=== PATIENT | female | born 1980 | race Caucasian/White ===

== ENCOUNTER 2019-03-14 19:35 | Inpatient (IN) ==
[2019-03-14] MEDS ORDERED: OXYTOCIN 30 UNITS/500 ML BAG IV PRN (20:11)
[2019-03-14] MEDS: LACTATED RINGER'S 1,000 ML IV PRN ×2 (20:27→22:16)
[2019-03-14 20:36] LABS: Hematocrit (blood only) 37.3 % (37-47); Hemoglobin 12.8 g/dL (12.0-16.0); Mean Corpuscular Volume 98.9 fL (80-100); Mean Platelet Volume 11.7 fL (7.4-10.4); Platelet Count 163 K/uL (130-400); RDW Coefficient of Variation 14.1 % (11.5-14.5); RDW Standard Deviation 50.3 fL (36.4-46.3); Red Blood Count 3.77 M/uL (4.2-5.4); White Blood Count 15.85 K/uL (4.8-10.8)
[2019-03-14 20:55] LABS: Mean Corpuscular Hgb Conc 34.3 g/dL (32-36)
--- NOTE | 2019-03-14 21:03 | Obstetrical Progress Note ---
Date of Service March 14, 2019 Subjective Admit Note 38 F P0000 at 40.2 weeks admitted with SROM clear fluid 6:30 PM. GBS is negative. FHT Cat 1. Cervix 5/90/-1/vertex. Patient walked and now may want an epidural. Results & Data Vital Signs (Past 12 Hours) Vital Signs Temp Pulse Resp BP 03/14/19 20:30 20 03/14/19 20:00 20 03/14/19 19:50 37.1 C 20 03/14/19 19:43 80 141/78 H
[2019-03-14] MEDS ORDERED: NALBUPHINE HCL INJ 10 MG/ML AMP IV PRN (21:51)
[2019-03-14] MEDS ORDERED: DiphenhydrAMINE HCL 50 MG/ML VIAL IV PRN (21:51)
[2019-03-14] MEDS ORDERED: fentaNYL 2MCG/ML ROPIV 1.25MG/ML 100 ML BAG EPI PRN (21:51)
[2019-03-14] MEDS ORDERED: NALOXONE HCL 0.4 MG/1 ML VIAL/CARP IV PRN (21:51)
[2019-03-14] MEDS ORDERED: ePHEDrine sulfate 50 MG/ML AMP IV PRN (21:51)
[2019-03-14] MEDS ORDERED: NALOXONE HCL 1 MG in SODIUM CHLORIDE 0.9% 1000ML 1,000 ML IV PRN (21:51)
[2019-03-14] MEDS ORDERED: ONDANSETRON INJ 2 MG/ML 2 ML VIAL IV PRN (21:51)
--- NOTE | 2019-03-14 21:51 | Anesthesiology Consultation ---
Date of Service March 14, 2019 Assessment & Plan (1) Encounter for pre-operative examination: Chart Review Chart Review: Acceptable Risk for Labor Epidural Consults Requested none ASA ASA2 Proposed Anesthesia Anesthesia Type: Labor Epidural Risk / Benefits Reviewed With: PT / POA / Parent / Guardian, Accepts Plan and Informed Consent Obtained History Height/Weight Height: 5 ft 4 in Weight: 75.75 kg Allergies Allergy/AdvReac Type Severity Reaction Status Date / Time No Known Allergies Allergy Verified 01/23/19 19:31 Medications Home Medications Medication Instructions Recorded Confirmed Last Taken PNV cmb#95-ferrous fumarate-FA 1 tab PO DAILY 01/23/19 03/14/19 03/14/19 [] acyclovir 400 mg PO TID 03/14/19 03/14/19 03/14/19 Active Medications Generic Name Dose Route Start Last Admin Trade Name Freq PRN Reason Stop Dose Admin Lactated Ringer's 1,000 mls @ 125 mls/hr 03/14/19 20:11 03/14/19 20:27 Lr IV 03/16/19 20:10 125 mls/hr .Q8H PRN Administration L&D Protocol Protocol Past Medical History Medical History SELENE III (cervical intraepithelial neoplasia III) Scoliosis s/p lumbar fusion (T3-L2 per prior imaging); hardware subsequently removed 2/2 discomfort Exercise / Class Metabolic Activity II 4-5 Yardwork/Stairs/Walk up hill Past Surgical History Surgical History History of colposcopy History of lumbar fusion lumbar fusion (T3-L2 per prior imaging) for scoliosis; hardware subsequently removed 2/2 discomfort [place] teeth removed 2009 Past Anesthesia History No Hx of Anesthesia Complications and No Family Hx of Anesthesia Complications History of PONV No Hx of PONV and No Hx of Motion Sickness Social History Smoking Status: Former smoker Hx Alcohol Use: No Hx Substance Use: No substance use type: does not use Physical Exam Vital Signs Last Vital Signs Temp 98.8 F 03/14/19 19:50 Pulse 85 03/14/19 21:46 Resp 22 03/14/19 20:59 BP 138/81 03/14/19 21:36 Pulse Ox 99 03/14/19 21:46 ENMT Mouth: no dentition abnormality Thyromental Distance: > or= 3.5 Finger Breadths Mallampati Class: II Neck normal visual inspection Respiratory normal respiratory effort Auscultation: lungs clear to auscultation bilaterally Cardiovascular Rate/Rhythm: regular rate and regular rhythm Testing Laboratory Results 03/14/19 20:22
[2019-03-14] MEDS ORDERED: fentaNYL citrate 100 MCG/2 ML VIAL ONE (22:24)
[2019-03-14] MEDS ORDERED: ePHEDrine sulfate 50 MG/ML AMP ONE (22:25)
[2019-03-14] MEDS ORDERED: BUPIVACAINE 0.25% 30 ML VIAL ONE (22:25)
[2019-03-14] MEDS ORDERED: fentaNYL 2MCG/ML ROPIV 1.25MG/ML 100 ML BAG EPI ONE (22:25)
[2019-03-15] MEDS ORDERED: OXYTOCIN 30 UNITS/500 ML BAG IV PRN ×2 (02:32→08:30)
--- NOTE | 2019-03-15 02:36 | Obstetrical Progress Note ---
Date of Service March 15, 2019 Physical Exam Genitourinary: OB Exam Abdomen: + estimated weight (7-8 lb) Manual OB Exam: + cervical dilation 10 cm, + cervical effacement 100% and + station 0 OB Exam Monitor Tracing: + external FHT monitor used, + external uterine monitor used and + category I will start to Oxytocin to augment contractions Results & Data Vital Signs (Past 12 Hours) Vital Signs Temp Pulse Resp BP Pulse Ox 03/15/19 02:31 113 H 96 03/15/19 02:30 100 H 94 03/15/19 02:26 121 H 94 03/15/19 02:21 106 H 97 03/15/19 02:20 110 H 123/63 03/15/19 02:18 37.2 C 18 03/15/19 02:16 102 H 97 03/15/19 02:12 102 H 94 03/15/19 02:11 102 H 95 03/15/19 02:06 104 H 95 03/15/19 02:05 93 H 121/62 94 03/15/19 02:01 104 H 97 03/15/19 01:56 102 H 94 03/15/19 01:54 96 H 94 03/15/19 01:51 102 H 95 03/15/19 01:50 93 H 116/61 03/15/19 01:47 100 H 94 03/15/19 01:46 98 H 95 03/15/19 01:41 92 H 96 03/15/19 01:37 108 H 94 03/15/19 01:36 103 H 95 03/15/19 01:34 91 H 115/64 03/15/19 01:31 99 H 98 03/15/19 01:30 107 H 94 03/15/19 01:26 93 H 94 03/15/19 01:24 93 H 92 03/15/19 01:21 101 H 96 03/15/19 01:19 98 H 118/72 03/15/19 01:16 104 H 96 03/15/19 01:14 101 H 94 03/15/19 01:11 100 H 97 03/15/19 01:06 100 H 96 03/15/19 01:04 99 H 123/73 03/15/19 01:01 101 H 96 03/15/19 00:56 96 H 95 01/06/20 00:51 106 H 95 03/15/19 00:50 100 H 94 03/15/19 00:49 97 H 123/67 03/15/19 00:46 95 H 95 03/15/19 00:41 37.6 C H 94 H 20 96 03/15/19 00:36 95 H 97 03/15/19 00:35 96 H 93 03/15/19 00:34 92 H 146/77 H 03/15/19 00:31 93 H 97 03/15/19 00:28 94 H 94 03/15/19 00:26 95 H 95 03/15/19 00:21 92 H 116/57 L 96 03/15/19 00:16 90 96 03/15/19 00:11 99 H 96 03/15/19 00:06 91 H 97 03/15/19 00:04 94 H 18 110/61 03/15/19 00:01 94 H 97 03/14/19 23:56 94 H 96 03/14/19 23:51 96 H 95 03/14/19 23:49 95 H 114/62 03/14/19 23:46 100 H 96 03/14/19 23:41 97 H 96 03/14/19 23:36 100 H 95 03/14/19 23:34 97 H 113/61 03/14/19 23:31 94 H 97 03/14/19 23:26 94 H 96 03/14/19 23:21 106 H 96 03/14/19 23:19 90 110/58 L 03/14/19 23:16 96 H 96 03/14/19 23:11 98 H 96 03/14/19 23:06 95 H 97 03/14/19 23:05 92 H 118/62 03/14/19 23:01 97 H 96 03/14/19 23:00 22 03/14/19 22:56 37.1 C 90 18 96 03/14/19 22:51 91 H 97 03/14/19 22:49 88 122/58 L 03/14/19 22:46 100 H 98 03/14/19 22:41 94 H 97 03/14/19 22:36 91 H 97 03/14/19 22:34 96 H 131/83 03/14/19 22:31 100 H 97 03/14/19 22:30 37.3 C 20 03/14/19 22:26 104 H 98 03/14/19 22:21 104 H 97 03/14/19 22:18 99 H 136/79 03/14/19 22:16 104 H 133/73 97 03/14/19 22:14 100 H 127/75 03/14/19 22:12 79 130/77 03/14/19 22:11 102 H 97 03/14/19 22:10 96 H 130/76 03/14/19 22:08 95 H 126/79 03/14/19 22:06 97 H 96 03/14/19 22:01 104 H 96 03/14/19 21:56 99 H 97 03/14/19 21:51 99 H 98 03/14/19 21:50 97 H 154/76 H 03/14/19 21:46 85 99 03/14/19 21:41 81 98 03/14/19 21:36 89 138/81 97 03/14/19 21:27 22 03/14/19 20:59 22 03/14/19 20:30 20 03/14/19 20:00 20 03/14/19 19:50 37.1 C 20 03/14/19 19:43 80 141/78 H
[2019-03-15] MEDS ORDERED: fentaNYL citrate 100 MCG/2 ML VIAL ONE (03:44)
[2019-03-15] MEDS ORDERED: BUPIVACAINE 0.25% 30 ML VIAL ONE (03:44)
--- NOTE | 2019-03-15 03:55 | Anesthesiology Progress Note ---
Date of Service March 15, 2019 Subjective The patient stated having increasing labor pains. The patients cervix is 10 cm dilated but she is unable to push due to the pain. The epidural was bolused with fentanyl 50 mcg and 3mL of 0.25% bupivacaine. The patient stated having improved labor pains. VSS throughout. heart tones also stable. Physical Exam Vital Signs: Last Vital Signs Temp 99.0 F 03/15/19 02:18 Pulse 93 H 03/15/19 03:50 Resp 18 03/15/19 02:18 BP 129/65 03/15/19 03:50 Pulse Ox 96 03/15/19 03:46 Results & Data Medications Administered Lactated Ringer's (Lr) 1,000 mls @ 125 mls/hr IV .Q8H PRN; Protocol PRN Reason: L&D Protocol Stop: 03/16/19 20:10 Last Admin: 03/14/19 22:16 Dose: 125 mls/hr Documented by: [id number] Infusion: 03/14/19 22:16 Dose: 999 mls/hr Documented by: [id number] Infusion: 03/14/19 21:30 Dose: 999 mls/hr Documented by: [id number] Admin: 03/14/19 20:27 Dose: 125 mls/hr Documented by: [id number] Ropivacaine (Epidural (L&D)) 100 ml EPI PRN PRN; Protocol PRN Reason: Pain R/T Labor Stop: 03/15/19 21:50 Last Admin: 03/14/19 22:08 Dose: 100 ml Documented by: [id number] Cosigned by: [id number]
[2019-03-15] MEDS ORDERED: fentaNYL citrate 100 MCG/2 ML VIAL IV STA (04:10)
[2019-03-15] MEDS: LACTATED RINGER'S 1,000 ML IV PRN (06:16)
[2019-03-15] MEDS ORDERED: miSOPROStoL 200 MCG TAB ONE (08:06)
[2019-03-15] MEDS ORDERED: METHYLERGONOVINE MALEATE 0.2 MG/ML AMP IM ONE (08:30)
[2019-03-15] MEDS ORDERED: OXYCODONE/ACETAMINOPHEN 5mg/325mg TAB PO PRN (08:30)
[2019-03-15] MEDS ORDERED: HYDROCORTISONE ACETATE 25 MG SUPP PR PRN (08:30)
[2019-03-15] MEDS ORDERED: BENZOCAINE 20% AER SPR 82.5 GM CAN EXT PRN (08:30)
[2019-03-15] MEDS ORDERED: ACETAMINOPHEN W/CODEINE #3 1 TAB PO PRN (08:30)
[2019-03-15] MEDS ORDERED: SUPERCREAM 0.870% 15 GM JAR EXT PRN (08:30)
[2019-03-15] MEDS ORDERED: miSOPROStoL 200 MCG TAB PR ONE (08:30)
[2019-03-15] MEDS ORDERED: DIPHTHERIA/TETANUS/PERTUSSIS 0.5 ML SYR/VIAL IM ONE (08:30)
[2019-03-15] MEDS ORDERED: bisacodyL 10 MG SUPP PR PRN (08:30)
[2019-03-15] MEDS ORDERED: ACETAMINOPHEN 325 MG TAB PO PRN (08:30)
--- NOTE | 2019-03-15 08:42 | Delivery Summary ---
DATE OF OPERATION: 03/15/2019 The patient delivered a live infant female in occiput anterior presentation as well as a left hand compound presentation. Infant was delivered. There was no nuchal cord. was delivered and placed on mother's abdomen. Cord was clamped and cut after 1 minute. Cord blood was obtained. Placenta was spontaneously delivered. Inspection of the perineum showed a second-degree midline laceration. This was repaired in layers with Vicryl stitch. Rectal exam post repair showed good sphincter tone. There are no sutures palpated in the rectum. Estimated blood loss is 400 mL. There is good hemostasis. All instruments were removed from the vagina including sponges, retractors and needles and accounted for x2. Baby and mother are stable in recovery. I attest to the content of the Intraoperative Record and any orders documented therein. Any exception s are noted below.
--- NOTE | 2019-03-15 09:33 | Anesthesia Procedure Note ---
Date of Service March 15, 2019 Anesthesia Post Epidural Note Vital Signs Vital Signs: Temp Pulse Resp BP Pulse Ox 37.3 C 88 20 129/62 95 03/15/19 07:12 03/15/19 09:30 03/15/19 09:15 03/15/19 09:30 03/15/19 07:56 Pain Intensity Left Hip: Pain Intensity: 0 Notes Mental Status: alert / awake / arousable Nausea / Vomiting: adequately controlled Pain: adequately controlled Airway Patency, RR, SpO2: stable & adequate BP & HR: stable & adequate Hydration State: stable & adequate Neuraxial Anesthesia: was administered and sensory block is resolving Anesthetic Complications: no major complications apparent and Pt Satisfied with anesthetic care Epidural: Removed without complications and With tip intact
[2019-03-15] MEDS: DOCUSATE SODIUM 100 MG CAP PO SCH (21:06)
[2019-03-16 06:45] LABS: Hematocrit (blood only) 34.8 % (37-47); Hemoglobin 11.6 g/dL (12.0-16.0); Mean Corpuscular Hemoglobin 33.1 pg (25-34); Mean Corpuscular Hgb Conc 33.3 g/dL (32-36); Mean Corpuscular Volume 99.4 fL (80-100); Platelet Count 162 K/uL (130-400); RDW Coefficient of Variation 14.3 % (11.5-14.5); RDW Standard Deviation 51.5 fL (36.4-46.3); White Blood Count 21.12 K/uL (4.8-10.8)
[2019-03-16] MEDS: FERROUS SULFATE 325 MG TAB PO SCH (08:44)
[2019-03-16] MEDS: PRENATAL VITAMIN 1 TAB PO SCH (08:44)
[2019-03-16] MEDS: DOCUSATE SODIUM 100 MG CAP PO SCH ×2 (08:44→19:34)
--- NOTE | 2019-03-16 10:11 | Obstetrical Progress Note ---
Date of Service March 16, 2019 Subjective Patient is seen and examined. She feels well, no complaints. Ambulating without dizziness Voiding without difficulty Tolerating regular diet with out N&V Bleeding is minimal No fever/ chills/ CP/ SOB/ N&V/ Leg pain Breast feeding without problems Vital Signs Temp Pulse Pulse Pulse Resp BP BP 03/16/19 03:50 36.5 C 69 18 03/15/19 23:10 36.6 C 76 18 03/15/19 20:25 36.7 C 82 18 117/68 03/15/19 15:30 36.4 C L 78 18 118/68 03/15/19 11:15 36.8 C 94 H 18 131/80 03/15/19 10:50 20 03/15/19 10:32 36.2 C L 91 H 20 122/66 03/15/19 10:16 94 H 125/59 L 03/15/19 10:15 20 BP Pulse Ox 03/16/19 03:50 117/74 03/15/19 23:10 113/74 03/15/19 20:25 03/15/19 15:30 03/15/19 11:15 97 03/15/19 10:50 03/15/19 10:32 03/15/19 10:16 03/15/19 10:15 Lab Results 03/14/19 03/16/19 Range/Units 20:22 06:06 WBC 15.85 H 21.12 H (4.8-10.8) K/uL RBC 3.77 L 3.50 L (4.2-5.4) M/uL Hgb 12.8 11.6 L (12.0-16.0) g/dL Hct 37.3 34.8 L (37-47) % MCV 98.9 99.4 (80-100) fL MCH 34.0 33.1 (25-34) pg MCHC 34.3 33.3 (32-36) g/dL RDW Std Deviation 50.3 H 51.5 H (36.4-46.3) fL RDW Coeff of Prieto 14.1 14.3 (11.5-14.5) % Plt Count 163 162 (130-400) K/uL MPV 11.7 H 12.0 H (7.4-10.4) fL PE: General: Alert, orientedx3, NAD Abd: soft, NT, fundus firm, below Umbilicus Perineum intact, Lochia rubra minimal Ext; NT, no edema AP: 38 yo s/p , ppd# 1 VSS Afebrile doing well Continue routine care All questions were answered CBC in am D/C home in am Results & Data Vital Signs (Past 12 Hours) Vital Signs Temp Pulse Resp BP 03/16/19 03:50 36.5 C 69 18 117/74 03/15/19 23:10 36.6 C 76 18 113/74
[2019-03-16] MEDS: IBUPROFEN 600 MG TAB PO PRN (16:17)
[2019-03-16] MEDS ORDERED: bisacodyL 5 MG TABEC PO SCH (20:00)
[2019-03-17 05:56] LABS: Basophils # (auto) 0.06 K/uL (0-0.2); Basophils % (auto) 0.4 %; Eosinophils # (auto) 0.29 K/uL (0-0.5); Eosinophils % (auto) 1.9 %; Hematocrit (blood only) 33.2 % (37-47); Hemoglobin 10.8 g/dL (12.0-16.0); Immature Granulocytes # (auto) 0.13 K/uL (0.00-0.02); Immature Granulocytes % (auto) 0.8 %; Lymphocytes # (auto) 2.34 K/uL (1.2-3.4); Lymphocytes % (auto) 15.1 %; Mean Corpuscular Hemoglobin 32.9 pg (25-34); Mean Corpuscular Hgb Conc 32.5 g/dL (32-36); Mean Corpuscular Volume 101.2 fL (80-100); Mean Platelet Volume 11.8 fL (7.4-10.4); Monocytes # (auto) 1.15 K/uL (0.11-0.59); Monocytes % (auto) 7.4 %; Neutrophils # (auto) 11.49 K/uL (1.4-6.5); Neutrophils % (auto) 74.4 %; Platelet Count 151 K/uL (130-400); RDW Coefficient of Variation 14.4 % (11.5-14.5); RDW Standard Deviation 53.1 fL (36.4-46.3); Red Blood Count 3.28 M/uL (4.2-5.4); White Blood Count 15.46 K/uL (4.8-10.8)
[2019-03-17] MEDS: DOCUSATE SODIUM 100 MG CAP PO SCH (08:58)
[2019-03-17] MEDS: FERROUS SULFATE 325 MG TAB PO SCH (08:58)
[2019-03-17] MEDS: PRENATAL VITAMIN 1 TAB PO SCH (08:58)
[2019-03-17] MEDS: IBUPROFEN 600 MG TAB PO PRN (08:59)
--- NOTE | 2019-03-17 10:54 | Obstetrical Progress Note ---
Date of Service March 17, 2019 Physical Exam Constitutional: WD/WN, vitals as above comfortable Genitourinary: abdomen soft non-tender fundus firm no edema neg Jameel's for discharge today Results & Data Vital Signs (Past 12 Hours) Vital Signs Temp Pulse Pulse Resp BP Pulse Ox 03/17/19 07:15 36.4 C L 63 63 18 133/82 98 03/16/19 23:19 36.4 C L 67 18 130/83 Laboratory Results Laboratory Results - last 48 hr 03/16/19 03/17/19 06:06 05:40 WBC 21.12 H 15.46 H RBC 3.50 L 3.28 L Hgb 11.6 L 10.8 L Hct 34.8 L 33.2 L MCV 99.4 101.2 H MCH 33.1 32.9 MCHC 33.3 32.5 RDW Std Deviation 51.5 H 53.1 H RDW Coeff of Prieto 14.3 14.4 Plt Count 162 151 MPV 12.0 H 11.8 H Immature Gran % (Auto) 0.8 Neut % (Auto) 74.4 Lymph % (Auto) 15.1 [place] % (Auto) 7.4 Eos % (Auto) 1.9 Baso % (Auto) 0.4 Immature Gran # (Auto) 0.13 H Neut # (Auto) 11.49 H Lymph # (Auto) 2.34 [place] # (Auto) 1.15 H Eos # (Auto) 0.29 Baso # (Auto) 0.06
== END 2019-03-17 13:30 | disposition home or self-care (01) | DRG 807 ==
LOC: OPB 19:35 → 4S1 19:39 → 4S2 03-15 11:38